=== PATIENT | male | born 1975 | race Caucasian/White ===

== ENCOUNTER 2018-02-02 04:09 | Emergency (ER) | payer MEDICAID ==
[~2018-02-02] VITALS: Ht 190.5 cm; Wt 86.2 kg
[2018-02-02 04:23] VITALS: BP_SYST 122
[2018-02-02 05:24] VITALS: BP_SYST 127
== END 2018-02-02 05:24 | disposition home or self-care (01) ==
LOC: SED 04:09
DX: J06.9 Acute upper respiratory infection, unspecified (principal); G44.209 Tension-type headache, unspecified, not intractable; F17.200 Nicotine dependence, unspecified, uncomplicated
CPT/HCPCS: 99282

== ENCOUNTER 2021-08-24 16:01 | Emergency (ER) | payer MEDICAID ==
[~2021-08-24] VITALS: Ht 193 cm; Wt 97.5 kg
[2021-08-24 16:01] VITALS: BP_SYST 127
[2021-08-24] MEDS ORDERED: cefTRIAXone 1 GM IVPB PREMIX 50 ML IV ONE (18:15)
[2021-08-24] MEDS ORDERED: VANCOMYCIN HCL 1,500 MG in NS 250 ML IV ONE (18:15)
[2021-08-24 18:40] LABS: BASOPHILS # (AUTO) 0.1 K/uL (0.0-0.2); BASOPHILS % (AUTO) 0.5 % (0.0-2.0); EOSINOPHILS # (AUTO) 0.2 K/uL (0.0-0.4); HEMATOCRIT 42.9 % (36-54); HEMOGLOBIN 14.2 g/dL (14.0-18.0); LYMPHOCYTES # (AUTO) 1.1 K/uL (1.0-5.5); MEAN CORPUSCULAR HEMOGLOBIN 30 pg (27-31); MEAN CORPUSCULAR HGB CONC 33 % (32-36); MEAN CORPUSCULAR VOLUME 90 fL (79.0-98.0); MONOCYTES # (AUTO) 0.7 K/uL (0.0-1.0); MONOCYTES % (AUTO) 7.1 % (1.7-9.3); NEUTROPHILS # (AUTO) 8.3 K/uL (1.8-7.7); NEUTROPHILS % (AUTO) 79.4 % (40.0-70.0); PLATELET COUNT (AUTO) 319 K/uL (130-430); RED BLOOD CELL COUNT(AUTO) 4.79 MIL/uL (4.2-6.2); RED CELL DISTRIBUTION WIDTH 13.1 % (9.0-15.0); WHITE BLOOD COUNT (AUTO) 10.4 K/uL (4.8-10.8)
[2021-08-24 19:02] LABS: CALCIUM 8.5 mg/dL (8.4-11.0); CREATININE 1.09 mg/dL (0.55-1.30); POTASSIUM 4.2 mmol/L (3.5-5.1)
[2021-08-24 19:07] LABS: TOTAL BILIRUBIN 0.6 mg/dL (0.0-1.0)
[2021-08-24] MEDS ORDERED: CEPH-548 PO (19:59)
[2021-08-24] MEDS ORDERED: VANCOMYCIN HCL 1000 MG/VIAL IV ONE (20:28)
[2021-08-24 21:30] VITALS: BP_SYST 137
== END 2021-08-24 21:35 | disposition home or self-care (01) ==
LOC: SED 16:01
DX: L03.115 Cellulitis of right lower limb (principal); L03.116 Cellulitis of left lower limb; F12.90 Cannabis use, unspecified, uncomplicated; Z79.899 Other long term (current) drug therapy
CPT/HCPCS: 36415; 71045; 80053; 83605; 83880; 84484; 85025; 87040; 93005; 96365; 96366; 96368; 99285; J0696; J3370

== ENCOUNTER 2024-05-10 17:20 | Emergency (ER) | payer MEDICAID ==
[~2024-05-10] VITALS: Ht 193 cm; Wt 93.0 kg
[~2024-05-10 17:20] MED LIST: CEPH-548 PO
[2024-05-10 17:26] VITALS: BP_SYST 157; PULSE 77; RESP 13; TEMP 97.1; O2SAT 100
[2024-05-10] MEDS: NACL 0.9% 1,000 ML IV ONE (17:44)
[2024-05-10] MEDS: LORazepam 1 MG TABLET PO ONE (17:50)
[2024-05-10] MEDS: ASPIRIN 81 MG TAB.CHEW PO ONE (17:50)
[2024-05-10] MEDS: ASPIRIN 81 MG TABLET(ECOTRIN) PO ONE (17:50)
[2024-05-10 17:53] LABS: BASOPHILS # (AUTO) 0.3 K/uL (0.0-0.2); EOSINOPHILS # (AUTO) 0.3 K/uL (0.0-0.4); EOSINOPHILS % (AUTO) 2.8 % (0.0-4.0); HEMATOCRIT 48.4 % (36-54); HEMOGLOBIN 16.5 g/dL (14.0-18.0); LYMPHOCYTES # (AUTO) 1.4 K/uL (1.0-5.5); LYMPHOCYTES % (AUTO) 14.9 % (20.5-51.5); MEAN CORPUSCULAR HEMOGLOBIN 31 pg (27-31); MEAN CORPUSCULAR HGB CONC 34 % (32-36); MEAN CORPUSCULAR VOLUME 91 fL (79.0-98.0); MONOCYTES # (AUTO) 0.5 K/uL (0.0-1.0); MONOCYTES % (AUTO) 5.7 % (1.7-9.3); NEUTROPHILS # (AUTO) 6.7 K/uL (1.8-7.7); NEUTROPHILS % (AUTO) 73.6 % (40.0-70.0); PLATELET COUNT (AUTO) 379 K/uL (130-430); RED CELL DISTRIBUTION WIDTH 13.2 % (9.0-15.0); WHITE BLOOD COUNT (AUTO) 9.1 K/uL (4.8-10.8)
[2024-05-10] MEDS: ONDANSETRON HCL 4 MG/2 ML VIAL IVP ONE (18:11)
[2024-05-10 18:12] LABS: ANION GAP 9 (5-15); CALCIUM 9.5 mg/dL (8.4-11.0); CARBON DIOXIDE 31 mmol/L (23-29); CHLORIDE 109 mmol/L (98-107); GFR AFRICAN AMERICAN 84 mL/min (>90); GLUCOSE 121 mg/dL (74-106); POTASSIUM 3.5 mmol/L (3.5-5.1); SODIUM SERUM 149 mmol/L (136-145); UREA NITROGEN, BLOOD 21 mg/dL (8-21)
[2024-05-10 18:15] LABS: ALCOHOL, BLOOD < 3 mg/dL (<10); GFR NON AFRICAN-AMERICAN 69 mL/min (>90)
[2024-05-10 18:43] LABS: INFLUENZA TYPE A Negative (NEGATIVE); INFLUENZA TYPE B NEGATIVE (NEGATIVE)
[2024-05-10 21:03] VITALS: BP_SYST 143; PULSE 64; RESP 15; TEMP 97.5; O2SAT 97
== END 2024-05-10 21:03 | disposition home or self-care (01) ==
LOC: SED 17:20
DX: R06.00 Dyspnea, unspecified (principal); Z20.822 Contact with and (suspected) exposure to COVID-19; E87.0 Hyperosmolality and hypernatremia; F17.210 Nicotine dependence, cigarettes, uncomplicated; R09.81 Nasal congestion; F12.90 Cannabis use, unspecified, uncomplicated; Z71.6 Tobacco abuse counseling; Z79.2 Long term (current) use of antibiotics
CPT/HCPCS: 99285; 96374; 71045; 96361; 87426; 80048; 83880; 85025; 85379; 84484; 36415; 93005; 82948; 87804 ×2; G0482; J2405; J7030